=== PATIENT | female | born 1955 | race Caucasian/White ===

== ENCOUNTER 2018-08-23 07:30 | Outpatient (CLI) | payer OTHER ==
[~2018-08-23 07:30] MED LIST: CORGARD40 MG; LOZOL2.5 MG; VASOTEC2.5 MG
[2018-08-24] MEDS ORDERED: LISINOPRIL5 MG PO (09:58)
[2018-08-24] MEDS ORDERED: PROPANADOL PO (09:58)
== END 2018-08-23 18:28 | disposition home or self-care (01) ==
LOC: EKG 07:30
DX: K82.8 Other specified diseases of gallbladder (principal); R10.11 Right upper quadrant pain; I10 Essential (primary) hypertension

== ENCOUNTER 2018-08-26 07:25 | Day surgery (SDC) | payer OTHER ==
[~2018-08-26 07:25] MED LIST changes: +LISINOPRIL5 MG PO; +PROPANADOL PO
[2018-08-26] MEDS ORDERED: COLACE100 MG PO ×2 (12:09→12:30)
[2018-08-26] MEDS ORDERED: PERCOCET 5-3251 EACH PO ×2 (12:09→12:30)
== END 2018-08-26 16:20 | disposition home or self-care (01) ==
LOC: CIR.AMB 07:25
DX: K82.8 Other specified diseases of gallbladder (principal)